=== PATIENT | female | born 1960 | race Caucasian/White ===

== ENCOUNTER → 2023-11-02 08:40 | Outpatient (REF) | payer OTHER, SELFPAY | LOC: WDC 08:40 | PROVIDERS: ATTENDING PHYSICIAN Family Medicine | DX: Z12.31 Encounter for screening mammogram for malignant neoplasm of breast (principal) | CPT/HCPCS: 77063; 77067 ==

== ENCOUNTER → 2023-12-16 06:18 | Day surgery (SDC) | payer OTHER, SELFPAY | LOC: GI 06:18 | PROVIDERS: ATTENDING PHYSICIAN Internal Medicine Gastroenterology | DX: Z12.11 Encounter for screening for malignant neoplasm of colon (principal); R19.5 Other fecal abnormalities; K64.8 Other hemorrhoids; R10.12 Left upper quadrant pain; R12 Heartburn; K31.89 Other diseases of stomach and duodenum | CPT/HCPCS: 45385; 43239; 88305; 88342 ==

== ENCOUNTER → 2024-01-14 11:35 | Outpatient (REF) | payer OTHER, SELFPAY | LOC: HWRAD 11:35 | PROVIDERS: ATTENDING PHYSICIAN Internal Medicine Gastroenterology; FAMILY PHYSICIAN Family Medicine | DX: N82.3 Fistula of vagina to large intestine (principal); R63.4 Abnormal weight loss | CPT/HCPCS: 74177; Q9967 ==

== ENCOUNTER 2024-02-06 06:43 | Day surgery (SDC) | payer OTHER, SELFPAY ==
[2024-02-06 12:47] VITALS: BP 120/79
[2024-02-06 12:54] VITALS: BMI 30.7
[2024-02-06] MEDS: NORMOSOL-R/PLASMALYTE-A 1000 IV (13:09)
== END 2024-02-06 14:47 | disposition home or self-care (01) ==
LOC: SDS 06:43
PROVIDERS: ATTENDING PHYSICIAN Specialist
DX: N20.0 Calculus of kidney (principal); Z53.9 Procedure and treatment not carried out, unspecified reason
CPT/HCPCS: 52356; 93005; J1580

== ENCOUNTER 2024-02-21 06:14 | Day surgery (SDC) | payer OTHER, SELFPAY ==
[2024-02-21] VITALS (10 sets, daily range): BP systolic 129–150; BP diastolic 79–101
[2024-02-21] MEDS: TRANSDERM-SCOP 1 PATCH TRANSDERM (08:25)
[2024-02-21] MEDS: DETROL LA 4 MG PO (10:48)
[2024-02-21] MEDS: Pyridium 200 MG PO (10:48)
== END 2024-02-21 12:06 | disposition home or self-care (01) ==
LOC: SDS 06:14
PROVIDERS: ATTENDING PHYSICIAN Specialist
DX: N20.0 Calculus of kidney (principal)
CPT/HCPCS: 52356; 74420; 76000; 87086; C1758; C1894; C2617; J1580

== ENCOUNTER 2024-03-06 06:11 | Day surgery (SDC) | payer OTHER, SELFPAY ==
[2024-02-25 11:00] LABS: Hematocrit 43.9 % (37.0-47.0); Hemoglobin 14.8 g/dL (12.0-16.0); Mean Corp Hgb Conc. 33.7 g/dL (33.0-37.0); Mean Corpuscular Hgb 29.6 pg (27.0-31.0); Mean Corpuscular Volume 87.8 fL (81.0-99.0); Mean Platelet Volume 9.7 fL (7.4-10.4); Platelet Count 285 10^3/uL (130-400); Red Cell Dist. Width 12.6 % (11.5-14.5); White Blood Cell Count 14.2 10^3/uL (4.8-10.8)
[2024-02-25 11:48] LABS: Blood Urea Nitrogen 17 mg/dl (7-17); Calcium 9.5 mg/dl (8.4-10.2); Carbon Dioxide 29 mmol/L (22-30); Chloride 99 mmol/L (98-107); Glucose 112 mg/dl (70-99); Potassium 4.3 mmol/L (3.5-5.1); Sodium 138 mmol/L (135-145); eGFR > 60.00
[2024-02-25 12:18] VITALS: BMI 29.2
[2024-03-06] VITALS (9 sets, daily range): BP systolic 103–138; BP diastolic 68–86; BMI 29.2
[2024-03-06] MEDS: NORMOSOL-R/PLASMALYTE-A 1000 IV (06:25)
[2024-03-06] MEDS: DETROL LA 4 MG PO (09:19)
[2024-03-06] MEDS: MOTRIN 600 MG PO (09:45)
[2024-03-09 18:37] LABS: Stone Analysis Mass 243 mg
== END 2024-03-06 10:16 | disposition home or self-care (01) ==
LOC: SDS 06:11
PROVIDERS: ATTENDING PHYSICIAN Specialist; FAMILY PHYSICIAN Family Medicine
DX: N20.2 Calculus of kidney with calculus of ureter (principal)
CPT/HCPCS: 52356; 36415; 74018; 76000; 80048; 82365; 85027; C1894; C2617

== ENCOUNTER → 2024-05-15 10:59 | Outpatient (REF) | payer OTHER, SELFPAY | LOC: WDC 10:59 | PROVIDERS: ATTENDING PHYSICIAN Family Medicine | DX: R92.30 Dense breasts, unspecified (principal) | CPT/HCPCS: 76641 ==

== ENCOUNTER → 2024-06-08 08:46 | Outpatient (REF) | payer OTHER, SELFPAY | LOC: HWRAD 08:46 | PROVIDERS: ATTENDING PHYSICIAN Specialist; FAMILY PHYSICIAN Family Medicine | DX: N20.0 Calculus of kidney (principal) | CPT/HCPCS: 74018 ==